=== PATIENT | male | born 1990 | race Caucasian/White ===

== ENCOUNTER 2019-11-21 07:01 | Observation (INO) | payer SELFPAY ==
[2019-11-21] VITALS (21 sets, daily range): BP systolic 120–154; BP diastolic 71–90; PULSE 61–85; RESP 17–26; TEMP 36.1–36.6; O2SAT 92–98; BMI 46.7
--- NOTE | ~2019-11-21 | XR_ITS ---
EXAMINATION: XR chest 2V 11/21/2019 08:25 INDICATION: Seizure. Left-sided facial numbness and tingling PROCEDURE: PA and lateral views of the chest COMPARISON: 01/08/2018 FINDINGS: The lungs are clear. The cardiomediastinal silhouette is within normal limits. There are no pleural effusions. There is no pneumothorax suspected. IMPRESSION: 1: NO ACUTE CARDIOPULMONARY DISEASE. Reviewed, dictated and finalized at location A.
--- NOTE | ~2019-11-21 | CT_ITS ---
EXAMINATION: CT BRAIN W/O DATE: 11/21/2019 08:18 INDICATION: Left-sided facial numbness. Possible seizure. TECHNIQUE: Computed tomography (CT) of the head was performed without intravenous contrast. The dose- length product was 605.33 mGy-cm. The mA was adjusted according to patient size. Iterative reconstruc tion technique was employed. COMPARISON: No prior studies for comparison. FINDINGS: Normal brain parenchymal volume for age. Normal raphael-white differentiation. No acute intrac ranial hemorrhage, infarction, mass or mass effect. Cerebellar tonsils extend below the foramen magnu m, incompletely visualized. Cannot exclude Chiari malformation. No ventriculomegaly or midline shift. Midline sagittal images demonstrate a normal corpus callosum, c raniovertebral junction and sella turcica. Basilar cisterns are patent. Paranasal sinuses and mastoids are pneumatized. No depressed skull fractures. IMPRESSION: 1. No acute intracranial abnormality. 2: Possible Chiari malformation. Consider correlation with MRI. Reviewed, dictated and finalized at location A.
--- NOTE | ~2019-11-21 | MR_ITS ---
EXAMINATION: MR brain/brain stem wo/w con DATE: 11/21/2019 12:36 INDICATION: Focal seizure. Slurred speech. Weakness of the left face and arm. TECHNIQUE: Magnetic resonance imaging (MRI) of the brain and brainstem was performed without and with 20 mL MultiHance intravenous contrast. Sequences included sagittal and axial T1-weighted FSE, axial diffusion-weighted FS EPI, axial T2*-weighted GRE, axial T2-weighted FLAIR Propeller, axial T2-weight ed Propeller, coronal T2-weighted FLAIR, and coronal T1-weighted 3D FSPGR. Postcontrast axial and cor onal T1-weighted FSE was obtained. Apparent diffusion coefficient (ADC) maps were created. COMPARISON: Head CT 11/21/2019 FINDINGS: The cerebellar tonsils extend 7 mm inferior to the foramen magnum, consistent with Chiari I malformation. The hippocampi are normal and symmetric. There is no intracranial hemorrhage, acute in farction, or abnormal intracranial mass lesion. The ventricles are normal in size. The orbits are nor mal. There is mild mucosal thickening in left maxillary sinus. The mastoid air cells are normal. IMPRESSION: 1. Chiari I malformation. Reviewed, dictated and finalized at location A. IMPRESSION: 1. Chiari I malformation.
--- NOTE | 2019-11-21 07:12 | ECG_ITS ---
Measurements Intervals [place] Rate: 73 P: 23 MN: 161 QRS: -14 QRSD: 98 T: 17 QT: 344 QTc: 380 Interpretive Statements SINUS RHYTHM VOLTAGE CRITERIA FOR LVH BORDERLINE R WAVE PROGRESSION, ANTERIOR LEADS BORDERLINE T WAVE ABNORMALITY- INFERIOR LEADS BASELINE ARTIFACT- I, II, AVR, V1 BORDERLINE ECG Electronically Signed On 11-21-2019 7:43:34 CDT by Buster Keller D.O.
--- NOTE | 2019-11-21 08:39 | ED.NEUROSD ---
HPI - Neuro Symptoms/Deficit General Chief Complaint: Neuro Symptoms/Deficit Stated Complaint: slurred speech, left sided face and arm weakness Time Seen by Provider: 11/21/19 07:14 History of Present Illness HPI Narrative: Patient is a 29-year-old male who presents ER with an episode of left-sided numbness and left upper extremity numbness with left arm contractures. Symptoms began prior to arriving to the ER. Prior to that he apparently had woken up in a daze was complaining to his about similar symptoms and been placed in a car. Reports he became more lucid while in the car when symptoms resolved. Had not had previous symptoms this before. Reports she is having some mild discomfort behind his left back tooth. No known trauma. No facial swelling or difficulty breathing/swallowing. Had not been having pain there previously. Related Data Home Medications Medication Instructions Recorded Confirmed No Home Medications 11/21/19 11/21/19 Allergies Allergy/AdvReac Type Severity Reaction Status Date / Time bismuth subsalicylate Allergy Mild Verified 01/08/18 12:04 amoxicillin Allergy Unknown Unverified 01/08/18 12:04 Review of Systems Review of Systems: All systems reviewed & are unremarkable except as noted in HPI and below Constitutional: Constitutional: Denies chills, Denies fever(s) and Denies weakness Eyes: Eyes: Denies change in vision and Denies photophobia ENT: Denies nasal congestion and Denies sore throat Comments: Positive for dental pain Cardiovascular: Cardiovascular: Denies chest pain and Denies radiating jaw, neck or arm pain Gastrointestinal: Gastrointestinal: Denies abdominal pain, Denies nausea and Denies vomiting Neurologic: Denies headache(s), Denies focal weakness and Reports numbness PMFSH Past Medical History Medical History (Updated 11/21/19 @ 10:16 by Frederick Odom MD) Healthy adult male Surgical History Surgical History (Updated 11/21/19 @ 08:45 by Frederick Odom MD) No history of previous surgery Social History Social History (Updated 11/21/19 @ 08:59 by Frederick Odom MD) Smoking status: Never smoker Smokeless tobacco user: chewing tobacco Alcohol intake: never Gender identity (if verbalized by the patient): Male Exam Narrative: Exam Narrative: GENERAL: Well-appearing, well-nourished, and in no acute distress. HEAD: Normocephalic, atraumatic. ENT: Mucous membranes moist. Bruising posterior to the 16th tooth. No palpable abscess or facial swelling. Scarring left side of the tongue that is not a new bite injury. CHEST: Clear to auscultation. No respiratory distress. HEART: Regular rate and rhythm. Normal peripheral pulses. ABDOMEN: Soft, nontender, nondistended. EXTREMITIES: Normal range of motion. No edema. SKIN: Warm, dry, no rash. NEURO: No focal deficits. Cranial nerves II through XII intact. Sensation intact. No upper or lower extremity drift. Alert and oriented x3. PSYCH: Normal mood and affect. Course Course Emergency Course: Discussed with neurology. Admit for observation and MRI evaluation. Concern for focal seizure. No antiepileptics at this time per neurology. Educated patient he will be unable to drive until he is 6 months seizure-free. Vital Signs Vital signs: Vital Signs Temperature 97.8 F 11/21/19 07:06 Pulse Rate 75 11/21/19 07:06 Respiratory Rate 21 H 11/21/19 07:06 Blood Pressure 146/90 H 11/21/19 07:06 Pulse Oximetry 96 11/21/19 07:06 Temperature 97.8 F 11/21/19 07:06 Pulse Rate 75 11/21/19 07:06 Respiratory Rate 21 H 11/21/19 07:06 Blood Pressure 146/90 H 11/21/19 07:06 Pulse Oximetry 96 11/21/19 07:06 MDM - Neuro Symptoms/Deficit Lab Data Result diagrams: 11/21/19 07:56 11/21/19 07:56 Labs: Lab Results 11/21/19 11/21/19 11/21/19 Range/Units 07:56 07:56 07:56 WBC 10.5 H (4.5-10.0) K/mm3 RBC 4.82 (4.6-6.20) M/mm3 Hgb 14.8
[2019-11-21 08:48] LABS: Basophils Absolute Auto 0.1 K/mm3 (0.0-0.1); Basophils Percent Auto 0.5 % (0.2-1.2); Eosinophils Absolute Auto 0.2 K/mm3 (0-0.3); Eosinophils Percent Auto 1.5 % (0-4.4); Hemoglobin 14.8 g/dL (14.0-18.0); Immature Granulocyte Absolute 0.04 K/mm3 (0.00-0.031); Immature Granulocyte Percent A 0.4 % (0-0.5); Lymphocytes Absolute Auto 2.88 K/mm3 (0.9-3.2); Lymphocytes Percent Auto 27.6 % (18.3-44.2); Mean Corpuscular HGB Conc 35.2 g/dl (32-36); Mean Corpuscular Hemoglobin 30.7 pg (26-34); Mean Corpuscular Volume 87.1 fl (80-100); Monocytes Percent Auto 9.2 % (2.6-8.5); Neutrophils Absolute Auto 6.4 K/mm3 (1.3-6.7); Neutrophils Percent Auto 60.8 % (45.5-73.1); Platelet Count Result 175 k/mm3 (150-375); Red Blood Count 4.82 M/mm3 (4.6-6.20); Red Cell Distribution Width 12.7 % (11.5-14.5); White Blood Count 10.5 K/mm3 (4.5-10.0)
[2019-11-21 09:00] LABS: Ethanol < 10 mg/dL (<10)
[2019-11-21 09:01] LABS: Add Urine Microscopic? NO; Appearance Urine Clear (Clear); Bilirubin Urine Negative (Negative); Blood Urine Negative (Negative); Color Urine Yellow (Yellow); Glucose Urine UA Negative (Negative); Ketones Urine Negative (Negative); Leukocyte Esterase Ur Negative LEU/UL (Negative); Nitrate Urine Negative (Negative); Protein Urine Negative (Negative); Specific Grav Ur 1.026 (1.001-1.035); Urobilinogen Urine Negative mg/dL (<2.0)
[2019-11-21 09:01] LABS: Alanine Aminotransferase 42 U/L (4-50); Alkaline Phosphatase 90 U/L (38-126); Anion Gap 9 mmol/L (8-16); Aspartate Amino Transferase 28 U/L (17-59); Bilirubin,Total 0.4 mg/dL (0.2-1.3); Blood Urea Nitrogen 11 mg/dL (9-20); Calcium 8.8 mg/dL (8.4-10.2); Carbon Dioxide 24 mmol/L (22-30); Chloride 105 mmol/L (98-107); Estimated CRCL calculation 181 ml/min; Estimated Glomerular Filt Rate > 60; Glucose 110 mg/dL (75-110); Potassium 3.9 mmol/L (3.4-5.0); Sodium 138 mmol/L (137-145)
[2019-11-21 09:14] LABS: Amphetamine Screen Urine Negative (Negative); Barbiturate Screen Urine Negative (Negative); Benzodiazepines Screen Urine Negative (Negative); Cannabinoid Screen Urine Negative (Negative); Cocaine Screen Urine Negative (Negative); Methadone Screen Urine Negative (Negative); Opiate Screen Urine Negative (Negative); Phencyclidine Screen Urine Negative (Negative)
--- NOTE | 2019-11-21 10:30 | PC.NURSE ---
pt continues to deny complaints. bed assignment received.
--- NOTE | 2019-11-21 11:27 | ADMGEN ---
This patient, Deo Riddle, was admitted to Medical Room 244-. Patient/family oriented to hospital policies and general routines including ID bracelet, bed and alarms, visiting hours, pain management, procedures, bathroom and other care routines, personal items, smoking policy, room service/diet, and visiting hours. Valuables list has been completed. Information on how to activate the Rapid Response Team has been discussed. Patient/Family are encouraged to report perceived risks to care and to ask questions if they do not understand what they are told or what they should do.
--- NOTE | 2019-11-21 14:33 | PM.IMHP ---
H&P: HPI History of Present Illness Date/Time: 11/21/19 14:33 Chief complaint: focal seizure Narrative: Deo Riddle is a 29 year old male who has no prior medical history of prior history of surgeries. The patient states that does not use alcohol or illicit drugs. Does occasionally use marijuana gummy. The patient came to the emergency room to be evaluated for some left-sided numbness to his upper extremity on the left side. The patient stated he has not experienced anything like this before. He does not have a history of hypertension or any TIAs or CVAs no history of any seizures. The patient woke up this morning and had a very sharp toothache on the bottom of his mouth on the left side and then felt pain to his left side of his face and he noticed that his left arm was contracted up and he had the thank very hard to get his arm to move straight. Then the 2nd time the patient had some left facial drooping and left arm contracture that his noted. She was able to get him into the car and while he was in the car he noticed that he was having this same symptom with the contracture of the left arm in his left side of his face felt funny. He did not take anything to help resolve this discomfort. The stated that he had slurred speech and confusion this morning as well. Patient is already been taken down for an MRI. His CT of the brain was performed which was read by radiology as no acute intracranial abnormalities. Possible Chiari malformation. Consider correlation with MRI. The patient is back to his baseline now without any facial drooping or any focal weakness. Date of service 11/21/2019 Review of Systems Review of Systems: All systems reviewed & are unremarkable except as noted in HPI and below Constitutional: Constitutional: Reports as per HPI and Reports no additional constitutional complaints Eyes: Eyes: Reports as per HPI and Reports no additional eye complaints ENT: Reports system reviewed and no additional complaints, except as documented and Reports Normal hearing present Cardiovascular: Cardiovascular: Reports no additional cardiovascular complaints Respiratory: Respiratory: Reports no additional respiratory complaints and Reports no additional respiratory complaints Gastrointestinal: Gastrointestinal: Reports as per HPI and Reports no additional gastrointestinal complaints Musculoskeletal: Musculoskeletal: Reports no additional musculoskeletal complaints Integumentary/Breasts: Skin/Breast: Reports system reviewed and no additional complaints, except as docu and Reports as per HPI Neurologic: Reports system reviewed and no additional complaints, except as documented, Reports as per HPI and Reports Normal hearing present Psychiatric: Psychiatric: Reports no additional psychiatric complaints and Reports as per HPI Endocrine: Endocrine: Reports no additional endocrine complaints Hematologic/Lymphatic: Hematologic/Lymphatic: Reports no additional hematologic/lymphatic complaints Allergic/Immunologic: Allergic/Immunologic: Reports no additional allergic/immunologic complaints [facility] Past Medical History Medical History Healthy adult male Surgical History Surgical History No history of previous surgery Family History Family History (Updated 11/21/19 @ 14:44 by Michelle Rosa NP) Sibling Mental disorder Social History Social History (Updated 11/21/19 @ 14:40 by Michelle Rosa NP) Social History: the patient is and his Carri is a durable power ip attorney for healthcare. the patient desires to be a full code. They have a daughter together. 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 He does occasionally use on marijuana gummy. He tells me that he chews tobacco. Smoking status: Current every day smoker Tobacco type: e-cigarettes/vaping
[2019-11-21 14:54] LABS: Cholesterol 183 mg/dL (0-200); HDL Direct 28 mg/dL; Triglycerides 150 mg/dL (<150)
[2019-11-21 15:05] LABS: LDL Cholesterol Direct 118 mg/dL
--- NOTE | 2019-11-21 17:00 | PC.NURSE ---
Patient requesting to leave AMA. I discussed the benefits and risks of leaving extensively. I notified Michelle Rosa NP and she also discussed the benefits and risks to the patient. I called Dr. Narvaez to request he see the patient today and discuss the patient's test results with him. Dr. Narvaez said that if the patient leaves AMA to give him his phone number and call his office on Saturday.
== END 2019-11-21 17:25 | disposition left against medical advice (07) ==
LOC: ANHED 10:16 → ANH2MED 10:27
PROVIDERS: Nurse Practitioner; Admitting Provider Family Medicine; Emergency Provider Emergency Medicine; Visit Provider Family Medicine
DX: G93.5 Compression of brain (principal); R47.81 Slurred speech; R29.810 Facial weakness; R53.1 Weakness; F12.90 Cannabis use, unspecified, uncomplicated; F17.290 Nicotine dependence, other tobacco product, uncomplicated; F17.220 Nicotine dependence, chewing tobacco, uncomplicated; E66.01 Morbid (severe) obesity due to excess calories; Z68.42 Body mass index [BMI] 45.0-49.9, adult
CPT/HCPCS: 36415; 70450; 70553; 71046; 80053; 80061; 80307; 81003; 85025; 93005; 99285; A9577; G0378; G0379

== ENCOUNTER 2020-11-08 08:59 | Emergency (ER) | payer BC, SELFPAY ==
[2020-11-08 09:14] VITALS: BP 125/78; PULSE 65; RESP 16; TEMP 35.6; O2SAT 99
--- NOTE | 2020-11-08 10:03 | ED.EAR ---
HPI - Ear Problem General Chief complaint: Ear Stated complaint: Ear Pain Time Seen by Provider: 11/08/20 10:03 Source: patient, RN notes reviewed and old records reviewed Mode of arrival: ambulatory Limitations: no limitations History of Present Illness HPI Narrative: 30-year-old male who presents to [facility] with complaints of left ear pain and decreased hearing. Recently returned from [place] did go swimming and traveled per airplane. He reports that his left ear hurts bad and feels plugged. He denies any shortness or breath, cough,sore throat, admits to history of chronic sinus issues but denies any acute sinus congestion or feelings of sinus pressure today. He denies any known fevers, chills or sweats. He reports that he has put some peroxide and used some OTC ear drops with no improvement in his symptoms. MD Complaint: ear pain Location: left ear Related Data Allergies Allergy/AdvReac Type Severity Reaction Status Date / Time bismuth subsalicylate Allergy Mild Gastrointestinal Verified 11/08/20 09:01 Upset amoxicillin Allergy Unknown Difficulty Verified 11/08/20 09:01 Breathing Review of Systems Review of Systems: CONSTITUTIONAL: Denies fever, chills, or sweats. EYES: Denies visual changes, redness, or discharge. ENT: Denies rhinorrhea, congestion, sore throat,positive for left ear pain with decreased hearing CARDIOVASCULAR: Denies chest pain, palpitations, or edema. RESPIRATORY: Denies cough or dyspnea. GASTROINTESTINAL: Denies abdominal pain, nausea, vomiting, or diarrhea. GENITOURINARY: Denies dysuria or hematuria. SKIN: Denies rash or itching. MUSCULOSKELETAL: Denies back pain, joint pain, or myalgia. NEUROLOGIC: Denies headache, numbness, or weakness. PSYCHIATRIC: Denies anxiety or depression. All systems reviewed & are unremarkable except as noted in HPI and below PMFSH Past Medical History Medical History Healthy adult male Obesity due to excess calories Tobacco use Surgical History Surgical History (Updated 11/11/20 @ 09:45 by Ashley Landers NP) S/P wisdom tooth extraction Family History Family History (Updated 11/11/20 @ 09:45 by Ashley Landers NP) Sibling Mental disorder Grandparent Heart disease Cerebrovascular accident Mother Hypertension Social History Social History Social History: the patient is and his Carri is a durable power patent prosecution attorney for healthcare. the patient desires to be a full code. They have a daughter together. 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 He does occasionally use on marijuana gummy. He tells me that he chews tobacco. Smoking status: Current every day smoker Tobacco type: e-cigarettes/vaping Smokeless tobacco user: chewing tobacco Alcohol intake: never Substance use type: marijuana Gender identity (if verbalized by the patient): Male Spiritual care concerns: No Comments At time of signature, agree with nursing past medical, surgical, social and family history. There is no relevant family history pertinent to the presenting complaint Exam Narrative: GENERAL: Well-appearing, well-nourished, and in no acute distress. HEAD: Normocephalic, atraumatic. EYES: PERRLA and EOMI. ENT: Nares clear, no rhinorrhea or epistaxis. Mucous membranes moist.TM's covered by impacted cerumen, irrigation completed with wax removed, left ear canal red irritated with inflammation, TM's normal bilaterally,no drainage from ear noted. throat pink with no lesions exudates or tonsil enlargement. NECK: Supple.no lymphadenopathy CHEST: Clear to auscultation. No respiratory distress.SAO2 99% on room air HEART: Regular rate and rhythm. No murmur heard. Normal peripheral pulses. ABDOMEN: Soft, nontender, nondistended, normal active bowel sounds. EXTREMITIES: Normal range of motion. No edema. SKIN: Warm, dry, no rash. NEURO: No focal deficits. Alert an
== END 2020-11-08 10:44 | disposition home or self-care (01) ==
PROVIDERS: Emergency Provider Registered Nurse
DX: H61.23 Impacted cerumen, bilateral (principal); H60.332 Swimmer's ear, left ear
CPT/HCPCS: 69209; 99213; G0463

== ENCOUNTER 2021-06-14 14:53 | Emergency (ER) | payer BC, SELFPAY ==
--- NOTE | ~2021-06-14 | XR_ITS ---
EXAMINATION: XR chest 2V DATE: 06/14/2021 15:20 INDICATION: Left anterior chest pain. Trauma 5 days ago. TECHNIQUE: Frontal and lateral views of the chest were obtained. COMPARISON: Chest 2 views 11/21/2019 FINDINGS: There is no pneumonia, pleural effusion, pneumothorax. The heart size is normal. There is a small hiatal hernia. IMPRESSION: 1. Small hiatal hernia. Reviewed, dictated and finalized at location A. IMPRESSION: 1. Small hiatal hernia.
[2021-06-14 15:02] VITALS: BP 157/89; PULSE 88; RESP 20; TEMP 36.8; O2SAT 100
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
[2021-06-14] MEDS: IBUPROFEN 400 MG TABLET 800 MG PO (15:47)
[2021-06-14] MEDS: LIDOCAINE 5% PATCH 1 PATCH TRANSDERM (15:49)
[2021-06-14 16:20] VITALS: BP 139/92; PULSE 83; RESP 16; TEMP 36.7; O2SAT 97
== END 2021-06-14 16:21 | disposition home or self-care (01) ==
LOC: ANHED 16:18
PROVIDERS: Emergency Provider Family Medicine
DX: R07.81 Pleurodynia (principal)
CPT/HCPCS: 71046; 99283; A9270

== ENCOUNTER 2022-07-25 19:34 | Emergency (ER) | payer BC, SELFPAY ==
--- NOTE | ~2022-07-25 | XR_ITS ---
EXAMINATION: XR foot LT min 3V DATE: 07/25/2022 19:59 INDICATION: Left foot pain TECHNIQUE: Dorsoplantar, two oblique and lateral views of the left foot were obtained. COMPARISON: None. FINDINGS: Alignment is normal. No fracture. 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 Os trig onum posterior to the subtalar joint. Small Achilles calcaneal enthesophyte. Soft tissues are unremar kable. No ankle joint effusion. IMPRESSION: 1. No acute osseous abnormality. Reviewed, dictated and finalized at location A.
[2022-07-25 19:37] VITALS: BP 162/87; PULSE 102; RESP 14; TEMP 36.4; O2SAT 96
--- NOTE | 2022-07-25 20:17 | ED.LOWEXIN ---
HPI - Extremity Injury (Lower) General Chief Complaint: Extremity Injury, Lower <ROSAURA Ott Last Filed: 07/25/22 23:50> Stated Complaint: left foot pain <ROSAURA Ott Last Filed: 07/25/22 23:50> Time Seen by Provider: 07/25/22 19:39 <ROSAURA Ott Last Filed: 07/25/22 23:50> History of Present Illness HPI Narrative: 32-year-old male reports for evaluation of left foot pain for the past 4 days. Patient reports the pain is worse in the plantar aspect of his foot and over the dorsum of the foot overlying the metatarsals. He reports pain is worse in the morning and while walking. Denies trauma, rash, fever, body aches, chills, paresthesias, bruising. <ROSAURA Ott Last Filed: 07/25/22 23:50> Related Data Allergies/Adverse Reactions: Allergies Allergy/AdvReac Type Severity Reaction Status Date / Time bismuth subsalicylate Allergy Mild Gastrointestinal Verified 11/08/20 09:01 Upset amoxicillin Allergy Unknown Difficulty Verified 11/08/20 09:01 Breathing <ROSAURA Ott Last Filed: 07/25/22 23:50> Review of Systems Review of Systems: CONSTITUTIONAL: Denies fever, chills EYES: Denies visual changes, redness, or discharge. ENT: Denies rhinorrhea, congestion, sore throat, or otalgia. CARDIOVASCULAR: Denies chest pain, palpitations, or edema. RESPIRATORY: Denies cough or dyspnea. GASTROINTESTINAL: Denies abdominal pain, nausea, vomiting, or diarrhea. GENITOURINARY: Denies dysuria or hematuria. SKIN: Denies rash or itching. MUSCULOSKELETAL: See HPI NEUROLOGIC: Denies headache, numbness, dizziness, or weakness. PSYCHIATRIC: Denies anxiety or depression. <ROSAURA Ott Last Filed: 07/25/22 23:50> PMFSH Past Medical History Medical History: Medical History Healthy adult male Obesity due to excess calories Tobacco use <ROSAURA Ott Last Filed: 07/25/22 23:50> Surgical History Surgical History: Surgical History S/P wisdom tooth extraction <Samra Smiley PA-C - Last Filed: 07/25/22 23:50> Family History Family History: Family History Sibling Mental disorder Grandparent Heart disease Cerebrovascular accident Mother Hypertension <Samra Smiley PA-C - Last Filed: 07/25/22 23:50> Social History Social History: Social History Social History: the patient is and his Carri is a durable power business attorney for healthcare. the patient desires to be a full code. They have a daughter together. 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 He does occasionally use on marijuana gummy. He tells me that he chews tobacco. Smoking status: Current every day smoker Tobacco type: e-cigarettes/vaping Smokeless tobacco user: chewing tobacco Alcohol intake: never Substance use type: marijuana Gender identity (if verbalized by the patient): Male Spiritual care concerns: No <Samra Smiley PA-C - Last Filed: 07/25/22 23:50> Exam Narrative: GENERAL: Well-appearing, in no acute distress. HEAD: Normocephalic NECK: Supple. CHEST: No respiratory distress. Clear to auscultation, no adventitious breath sounds. HEART: Regular rate and rhythm. No murmur heard. Normal peripheral pulses. EXTREMITIES: LLE: Tenderness over the entire plantar fascia extending into the plantar aspect of the metatarsals and the foot pad. Tenderness over distal aspect of metatarsals 3-5 over the dorsum of the foot. No tenderness to toes. No edema, erythema, ecchymosis, rash. No tenderness to ankle or knee. Full range of motion of lower extremity. Negative Magana's test. DP pulse 2+. Sensation intact. Ambulatory with slight limp. SKIN: Warm, dry, no rash. NEURO: No focal
[2022-07-25] MEDS: ACETAMINOPHEN 500 MG TABLET 1000 MG PO (20:40)
[2022-07-25] MEDS: IBUPROFEN 600 MG TABLET PO (20:40)
[2022-07-25 20:51] VITALS: BP 162/81; PULSE 94; RESP 18; O2SAT 99
== END 2022-07-25 20:50 | disposition home or self-care (01) ==
PROVIDERS: Emergency Provider Physician Assistant
DX: M79.672 Pain in left foot (principal); F17.290 Nicotine dependence, other tobacco product, uncomplicated
CPT/HCPCS: 73630; 99283; A9270